=== PATIENT | male | born 1965 | race Caucasian/White ===

== ENCOUNTER 2018-11-30 10:05 | Inpatient (IN) ==
[2018-11-30 11:25] LABS: Apearance,Urine CLEAR (Clear); Bilirubin,Urine Negative (Negative); Blood, Urine Negative (Negative); Glucose,Urine (UA) 150 mg/dL (Negative); Ketones,Urine 20 mg/dL (Negative); Nitrite,Urine Negative (Negative); Protein,Urine Negative; Urine Color Amber (Yellow); Urine Specific Gravity 1.017 (1.001-1.035); Urine Urobilinogen < 2.0 EU/DL (0.2-1.0)
[2018-11-30 11:37] LABS: Barbiturates Screen,Urine Negative (Negative); Benzodiazepines Screen,Urine Positive (Negative); Cannabinoid Screen,Urine Negative (Negative); Opiate Screen,Urine Negative (Negative); Phencyclidine Screen,Urine Negative (Negative)
[2018-11-30 11:38] LABS: Squamous Epithelial Cell,Urine Rare /HPF (0-10)
[2018-11-30 11:39] LABS: Bacteria,Urine Rare /HPF (Few)
[2018-11-30 11:40] LABS: Basophils % 0.5 % (0.0-0.8); Eosinophils # 0.1 10*3/uL (0.0-0.87); Eosinophils % 1.6 % (0.00-10.9); Hematocrit 41.1 VOL% (42.0-52.0); Immature Granulocytes % 0.5 %; Immature Granulocytes Absolute 0.04 #; Lymphocytes # 1.2 10*3/uL (1.4-4.0); Lymphocytes % 15.2 % (21.2-54.2); Mean Corpuscular HGB Conc 36.7 GM/DL (32-36); Mean Corpuscular Hemoglobin 33 PG (27-34); Mean Corpuscular Volume 88.8 FL (87-102); Mean Platelet Volume 10.4 FL (9.6-12.0); Monocytes # 0.6 10*3/uL (0.11-0.8); Neutrophils # 5.6 10*3/uL (1.4-7.4); Neutrophils % 74.2 % (38.7-73.9); Platelet Count 222 T/CUMM (130-400); Red Blood Count 4.63 MC/CUMM (3.8-5.5); Red Cell Distribution Width 11.8 % (9.3-17.3); White Blood Count 7.6 T/CUMM (4-12)
[2018-11-30 11:41] LABS: Hemoglobin 15.1 GM/DL (14.0-18.0)
[2018-11-30 11:43] LABS: Albumin 4.7 G/DL (3.4-5.0); Bilirubin,Total 0.9 MG/DL (0.2-1.0); Calcium 9.4 MG/DL (8.5-10.1); Osmolality,Calculated 251.4 MOS/KG (273-304); Potassium 3.7 MMOL/L (3.5-5.1); Total Protein 8.1 G/DL (6.4-8.3)
[2018-11-30] MEDS ORDERED: ONDANSETRON 4 MG/2 ML VIAL IV PRN (15:56)
[2018-11-30] MEDS ORDERED: ACETAMINOPHEN 325 MG TABLET PO PRN (15:56)
[2018-11-30] MEDS ORDERED: DIAZEPAM 10 MG/2 ML SYRINGE IV PRN (16:07)
[2018-11-30] MEDS ORDERED: GLUCAGON 1 MG VIAL IM PRN (16:17)
[2018-11-30] MEDS ORDERED: DEXTROSE 50% 25 GM/50 ML VIAL IV PRN (16:17)
[2018-11-30] MEDS ORDERED: LEVOFLOXACIN INJ 500 MG in PREMIX 1 EACH IV SCH (16:30)
[2018-11-30] MEDS: SODIUM CHLORIDE 0.9% 1,000 ML IV SCH (16:36)
[2018-11-30] MEDS: ENOXAPARIN 40 MG/0.4 ML SYRINGE SUBCUT SCH (16:36)
[2018-11-30] MEDS: chlordiazePOXIDE 25 MG CAPSULE PO SCH ×2 (18:27→20:26)
[2018-11-30] MEDS: INSULIN REGULAR 100 UNIT/ML SUBCUT SCH ×2 (19:08→22:43)
[2018-11-30] MEDS: CARVEDILOL 6.25 MG TABLET PO SCH (20:20)
[2018-11-30] MEDS: metroNIDAZOLE INJ 500 MG in PREMIX 1 EACH IV SCH (20:20)
[2018-11-30] MEDS: DULoxetine 20 MG CAPSULE PO SCH (20:21)
[2018-11-30] MEDS: HYDROmorphone 2 MG/1 ML VIAL IV PRN (20:24)
[2018-11-30] MEDS: traZODone 50 MG TABLET PO PRN (20:27)
[2018-11-30] MEDS: LORazepam 1 MG TABLET PO PRN (22:41)
[2018-12-01] MEDS: HYDROmorphone 2 MG/1 ML VIAL IV PRN ×4 (00:38→23:02)
[2018-12-01] MEDS: SODIUM CHLORIDE 0.9% 1,000 ML IV SCH (03:41)
[2018-12-01] MEDS: metroNIDAZOLE INJ 500 MG in PREMIX 1 EACH IV SCH ×3 (03:42→19:04)
[2018-12-01] MEDS: LORazepam 1 MG TABLET PO PRN (03:42)
[2018-12-01 06:07] LABS: Basophils % 0.6 % (0.0-0.8); Eosinophils # 0.2 10*3/uL (0.0-0.87); Eosinophils % 4.8 % (0.00-10.9); Hematocrit 35.7 VOL% (42.0-52.0); Immature Granulocytes % 0.3 %; Immature Granulocytes Absolute 0.01 #; Lymphocytes # 0.9 10*3/uL (1.4-4.0); Lymphocytes % 26.2 % (21.2-54.2); Mean Corpuscular HGB Conc 36.1 GM/DL (32-36); Mean Corpuscular Hemoglobin 32 PG (27-34); Mean Corpuscular Volume 89.7 FL (87-102); Mean Platelet Volume 10.8 FL (9.6-12.0); Monocytes # 0.5 10*3/uL (0.11-0.8); Monocytes % 13.9 % (1.7-12.7); Neutrophils # 1.8 10*3/uL (1.4-7.4); Neutrophils % 54.2 % (38.7-73.9); Red Blood Count 3.98 MC/CUMM (3.8-5.5); Red Cell Distribution Width 11.7 % (9.3-17.3)
[2018-12-01 06:24] LABS: Hemoglobin 12.9 GM/DL (14.0-18.0); Platelet Count 158 T/CUMM (130-400); White Blood Count 3.3 T/CUMM (4-12)
[2018-12-01 06:34] LABS: Calcium 8.5 MG/DL (8.5-10.1); Osmolality,Calculated 262.4 MOS/KG (273-304); Potassium 3.3 MMOL/L (3.5-5.1); Thyroid Stimulating Hormone 3.03 uIU/ml (0.358-3.74)
[2018-12-01 08:49] LABS: Folate 11.7 NG/ML (5.4-24.0)
[2018-12-01] MEDS: CARVEDILOL 6.25 MG TABLET PO SCH ×2 (09:48→20:35)
[2018-12-01] MEDS: FOLIC ACID 1 MG TABLET PO SCH (09:48)
[2018-12-01] MEDS: chlordiazePOXIDE 25 MG CAPSULE PO SCH ×4 (09:48→20:35)
[2018-12-01] MEDS: INSULIN REGULAR 100 UNIT/ML SUBCUT SCH ×4 (09:48→21:23)
[2018-12-01] MEDS: THIAMINE 200 MG/2 ML VIAL IV SCH (09:48)
[2018-12-01] MEDS ORDERED: GABAPENTIN 100 MG CAPSULE PO SCH (15:00)
[2018-12-01] MEDS: POTASSIUM CHLORIDE INJ 10 MEQ in DEXTROSE 5% NACL 0.9% 1,000 ML IV SCH (15:04)
[2018-12-01] MEDS: LEVOFLOXACIN INJ 500 MG in PREMIX 1 EACH IV SCH (18:07)
[2018-12-01] MEDS: GABAPENTIN 100 MG CAPSULE PO SCH (20:35)
[2018-12-01] MEDS: ENOXAPARIN 40 MG/0.4 ML SYRINGE SUBCUT SCH (20:35)
[2018-12-01] MEDS: traZODone 50 MG TABLET PO PRN (20:35)
[2018-12-01] MEDS: DULoxetine 20 MG CAPSULE PO SCH (20:35)
[2018-12-02] MEDS: LORazepam 1 MG TABLET PO PRN ×2 (00:33→05:10)
[2018-12-02] MEDS: POTASSIUM CHLORIDE INJ 10 MEQ in DEXTROSE 5% NACL 0.9% 1,000 ML IV SCH ×3 (03:51→17:10)
[2018-12-02] MEDS: HYDROmorphone 2 MG/1 ML VIAL IV PRN ×4 (03:52→20:56)
[2018-12-02 04:02] LABS: Basophils % 1.1 % (0.0-0.8); Eosinophils % 5.3 % (0.00-10.9); Hematocrit 33.8 VOL% (42.0-52.0); Hemoglobin 11.9 GM/DL (14.0-18.0); Lymphocytes % 19.5 % (21.2-54.2); Mean Corpuscular HGB Conc 35.2 GM/DL (32-36); Mean Corpuscular Hemoglobin 33 PG (27-34); Mean Corpuscular Volume 92.9 FL (87-102); Mean Platelet Volume 10.2 FL (9.6-12.0); Monocytes % 14.5 % (1.7-12.7); Neutrophils % 59.2 % (38.7-73.9); Platelet Count 106 T/CUMM (130-400); Red Blood Count 3.64 MC/CUMM (3.8-5.5); Red Cell Distribution Width 11.9 % (9.3-17.3); White Blood Count 2.8 T/CUMM (4-12)
[2018-12-02 04:03] LABS: Eosinophils # 0.2 10*3/uL (0.0-0.87); Immature Granulocytes % 0.4 %; Immature Granulocytes Absolute 0.01 #; Lymphocytes # 0.6 10*3/uL (1.4-4.0); Monocytes # 0.4 10*3/uL (0.11-0.8); Neutrophils # 1.7 10*3/uL (1.4-7.4)
[2018-12-02 04:19] LABS: Calcium 7.9 MG/DL (8.5-10.1); Osmolality,Calculated 276.5 MOS/KG (273-304); Potassium 3.7 MMOL/L (3.5-5.1)
[2018-12-02] MEDS: metroNIDAZOLE INJ 500 MG in PREMIX 1 EACH IV SCH ×3 (05:10→20:57)
[2018-12-02] MEDS: GABAPENTIN 100 MG CAPSULE PO SCH ×2 (07:08→20:58)
[2018-12-02] MEDS: THIAMINE 200 MG/2 ML VIAL IV SCH (08:39)
[2018-12-02] MEDS: FOLIC ACID 1 MG TABLET PO SCH (08:39)
[2018-12-02] MEDS: chlordiazePOXIDE 25 MG CAPSULE PO SCH ×2 (08:40→20:58)
[2018-12-02] MEDS: INSULIN REGULAR 100 UNIT/ML SUBCUT SCH ×4 (08:40→20:58)
[2018-12-02] MEDS: CARVEDILOL 6.25 MG TABLET PO SCH ×2 (08:40→20:58)
[2018-12-02] MEDS: SODIUM CHLORIDE 0.9% 1,000 ML IV SCH (16:06)
[2018-12-02] MEDS: LEVOFLOXACIN INJ 500 MG in PREMIX 1 EACH IV SCH (17:09)
[2018-12-02] MEDS: DULoxetine 20 MG CAPSULE PO SCH (20:58)
[2018-12-02] MEDS: ENOXAPARIN 40 MG/0.4 ML SYRINGE SUBCUT SCH (20:58)
[2018-12-02] MEDS: traZODone 50 MG TABLET PO PRN (20:58)
[2018-12-03] MEDS: HYDROmorphone 2 MG/1 ML VIAL IV PRN ×2 (05:23→12:18)
[2018-12-03] MEDS: metroNIDAZOLE INJ 500 MG in PREMIX 1 EACH IV SCH (05:24)
[2018-12-03] MEDS: GABAPENTIN 100 MG CAPSULE PO SCH (06:23)
[2018-12-03] MEDS: POTASSIUM CHLORIDE INJ 10 MEQ in DEXTROSE 5% NACL 0.9% 1,000 ML IV SCH ×2 (06:50→06:51)
[2018-12-03 07:17] LABS: Basophils % 0.6 % (0.0-0.8); Eosinophils # 0.2 10*3/uL (0.0-0.87); Eosinophils % 5.6 % (0.00-10.9); Hematocrit 34.3 VOL% (42.0-52.0); Hemoglobin 11.9 GM/DL (14.0-18.0); Immature Granulocytes % 0.6 %; Immature Granulocytes Absolute 0.02 #; Lymphocytes # 0.8 10*3/uL (1.4-4.0); Lymphocytes % 23.7 % (21.2-54.2); Mean Corpuscular HGB Conc 34.7 GM/DL (32-36); Mean Corpuscular Hemoglobin 32 PG (27-34); Mean Corpuscular Volume 93.2 FL (87-102); Mean Platelet Volume 11.3 FL (9.6-12.0); Monocytes # 0.4 10*3/uL (0.11-0.8); Monocytes % 12.3 % (1.7-12.7); Neutrophils % 57.2 % (38.7-73.9); Platelet Count 102 T/CUMM (130-400); Red Blood Count 3.68 MC/CUMM (3.8-5.5); Red Cell Distribution Width 11.6 % (9.3-17.3); White Blood Count 3.4 T/CUMM (4-12)
[2018-12-03 07:35] LABS: Blood Urea Nitrogen < 1 MG/DL (7-18); Calcium 8.1 MG/DL (8.5-10.1); Glucose 124 MG/DL (74-106); Osmolality,Calculated 268.3 MOS/KG (273-304); Potassium 3.5 MMOL/L (3.5-5.1); Sodium 136 MMOL/L (136-145)
[2018-12-03 07:42] LABS: Platelet Estimate Decreased
[2018-12-03] MEDS ORDERED: GLUCAGON 1 MG VIAL IM PRN (08:38)
[2018-12-03] MEDS ORDERED: DEXTROSE 50% 25 GM/50 ML VIAL IV PRN (08:38)
[2018-12-03] MEDS ORDERED: diphenhydrAMINE 50 MG/1 ML VIAL IV ONE (08:42)
[2018-12-03] MEDS: FOLIC ACID 1 MG TABLET PO SCH (08:47)
[2018-12-03] MEDS: CARVEDILOL 6.25 MG TABLET PO SCH (08:47)
[2018-12-03] MEDS: chlordiazePOXIDE 25 MG CAPSULE PO SCH (08:47)
[2018-12-03] MEDS: THIAMINE 200 MG/2 ML VIAL IV SCH (08:48)
[2018-12-03] MEDS: INSULIN REGULAR 100 UNIT/ML SUBCUT SCH ×2 (08:48→12:22)
[2018-12-03] MEDS ORDERED: LEVOFLOXACIN 500 MG TABLET PO SCH (09:00)
[2018-12-03] MEDS ORDERED: metroNIDAZOLE 500 MG TABLET PO SCH (09:00)
[2018-12-03 16:47] VITALS: BP 128/81
== END 2018-12-03 16:51 | DRG 392 ==
LOC: N.ED 10:05 → N.EDINP 15:55 → N.5E 16:53
PROVIDERS: ADMIT Internal Medicine; ATTEND Internal Medicine